=== PATIENT | female | born 1945 | race Caucasian/White ===

== ENCOUNTER 2016-08-20 03:11 | Inpatient (IN) | payer BC, OTHER ==
[~2016-08-20] VITALS: Ht 152.4 cm; Wt 90.8 kg
[2016-08-20] VITALS (10 sets, daily range): BP systolic 108–180; BP diastolic 64–77; PULSE 81–96; TEMP 36.8–37.1; O2SAT 85–97; Ht 152.4 cm; Wt 90.8 kg
[~2016-08-20 03:11] MED LIST: ALBUAER2; ASMTWH; ATOR-24 PO; GLC500; HYDC25; LISI-725; SALM50AE2
[2016-08-20] MEDS ORDERED: SODIUM CHLORIDE 0.9% 1000ML 1,000 ML IV STA (03:29)
[2016-08-20] MEDS ORDERED: SODIUM CHLORIDE 0.9% 1000ML 1,000 ML IV ONE (03:29)
[2016-08-20] MEDS ORDERED: ACETAMINOPHEN 325 MG TAB PO STA (03:42)
[2016-08-20 03:55] LABS: MEAN CELL VOLUME 83.5 fL (80-100); MEAN CORPUSCULAR HEMOGLOBIN 27.9 pg (25-34); MEAN CORPUSCULAR HGB CONC 33.4 g/dl (32-36); MEAN PLATELET VOLUME 10.3 fL (7.4-10.4); PLATELET COUNT 226 K/uL (130-400); RED BLOOD COUNT 4.19 M/uL (4.2-5.4); WHITE BLOOD COUNT 23.45 K/uL (4.8-10.8)
--- NOTE | 2016-08-20 03:56 | EMERGENCY ROOM VISIT NOTE ---
History Report prepared by Sylvia: Britt Foss Under the Supervision of: Dr. Collins Willis M.D. First contact with patient: 03:23 Chief Complaint: FLU LIKE SX Stated Complaint: FLU History of Present Illness The patient is a 71 year old female who presents to the Emergency Room with complaints of persistent flu like symptoms that began yesterday morning. She states that her symptoms worsened throughout the day. The patient associates nausea, a nonproductive cough, fever, headache, sore throat, and body aches with her symptoms today. She states that she recently visited her daughter, who was diagnosed with the flu. The patient states that she got a flu shot this year. She states that she last took Ibuprofen for her fever 1.5 hours ago. The patient denies taking any Tylenol recently. She states that she has had difficulty keeping up on her fluids today due to her sore throat. The patient notes a history of asthma. She denies any history of heart disease or being on any blood thinners. Per the patient's , the patient was confused and disoriented a few hours ago. He notes that the patient has a history of breast cancer 10 years ago, noting that she is now in remission. The patient denies any abdominal pain, back pain, urinary symptoms, or pain or swelling in her legs. Source of History: patient, spouse/significant other () Onset: yesterday morning Position: other (global ) Quality: other (flu like symptoms) Timing: worsening, other (persistent) Associated Symptoms: + cough, + fevers, + headache, + nausea, + sorethroat, No abdominal pain, No back pain, No urinary symptoms Note: Associated Symptoms: body aches Review of Systems See HPI for pertinent positives & negatives. A total of 10 systems reviewed and were otherwise negative. Past Medical & Surgical Medical Problems: (1) Asthma (2) Breast cancer (3) Cerebrovascular disease (4) Diabetes mellitus, type 2 (5) Dyslipidemia (6) Fever (7) History of breast cancer (8) Hypertension (9) Hypothyroidism Surgical Problems: (1) H/O breast surgery (2) Status post hysterectomy (3) Status post partial mastectomy (4) Status post tonsillectomy Old medical records were reviewed. Nurse's notes were reviewed and I agree with. Family History FHx: cancer Social History Smoking Status: Never Smoker Smokeless Tobacco Use: No Alcohol Use: none Marital Status: Housing Status: lives with significant other Occupation Status: unemployed Current/Historical Medications Scheduled Aspirin (Aspirin Ec), 81 MG PO DAILY Atorvastatin (Lipitor), 40 MG PO DAILY Budesonide/Formoterol Fumarate (Symbicort 80/4.5 Inhaler), 2 PUFFS INH BID Cyanocobalamin (Vitamin B-12), 1,000 MCG PO DAILY Hydrochlorothiazide (Hctz), 25 MG PO DAILY Ibuprofen (Ibuprofen), 400 MG PO QAM Levothyroxine Sodium (Levothyroxine Sodium), 50 MCG PO DAILY Metformin Hcl (Glucophage), 1,000 MG PO BID Montelukast Sodium (Singulair), 10 MG PO QPM Multiple Vitamins W/ Minerals (Preservision Areds), 1 CAP PO BID Sitagliptin Phosphate (Januvia), 100 MG PO DAILY Travoprost (Travatan Z), 1 DROPS OPB HS Scheduled PRN Albuterol Hfa (Ventolin Hfa), 2 PUFFS INH Q6H PRN for SOB/Wheezing Allergies Coded Allergies: Erythromycin (Verified Allergy, Intermediate, RASH, 08/20/16) ITCHING Lisinopril (Verified Allergy, Intermediate, EDEMA FACE/LIPS/TONGUE, ) Physical Exam Vital Signs Date Time Temp Pulse Resp B/P Pulse Ox O2 Delivery O2 Flow Rate FiO2 08/20/16 04:39 37.1 81 18 122/91 96 Nasal Cannula 2.0 08/20/16 04:00 88 20 144/89 95 Nasal Cannula 2.0 08/20/16 03:44 95 Nasal Cannula 2.0 08/20/16 03:43 90 Room Air 08/20/16 03:15 38.0 104 20 113/60 91 Room Air Physical Exam General: Well developed well nourished, non-ill appearing older female in no acute distress, breathing comfortably on room air. Normal speech HEENT: Normal cephalic atraumatic. Pupils are equal round and reactive to light. Sclera anicteric Extraocular movements are intact. Oropharynx is pink with moist mucous membranes. No swelling of the mouth lips or tongue. Neck: Supple with a midline trachea. No meningeal signs or stiffness, no JVD or bruits. No Stridor. Chest: Clear to auscultation bilaterally. No wheezes or rhonchi. No increased work of breathing. Heart: regular rate and rhythm. Abdomen: Soft nontender, nondistended without rebound guarding or rigidity. Extremities: No cyanosis clubbing or edema. No calf tenderness or assymetry Spine/Back. Non tender to palpation. No CVA tenderness Skin: Good turgor without rashes. Neurologic exam: Cranial nerves two through 12 are intact. Motor and sensation are intact and symmetrical throughout. Medical Decision & Procedures ER Provider Diagnostic Interpretation: Chest x-ray per my interpretation reveals questionable infiltrate in the right base. Laboratory Results Test 08/20/16 03:40 08/20/16 03:45 08/20/16 03:46 08/20/16 04:21 Influenza Type A Antigen Neg for Influ A (NEG) Influenza Type B Antigen Neg for Influ B (NEG) Immature Granulocyte % (Auto) 0.4 % White Blood Count 23.45 K/uL (4.8-10.8) Red Blood Count 4.19 M/uL (4.2-5.4) Hemoglobin 11.7 g/dL (12.0-16.0) Hematocrit 35.0 % (37-47) Mean Corpuscular Volume 83.5 fL (80-100) Mean Corpuscular Hemoglobin 27.9 pg (25-34) Mean Corpuscular Hemoglobin Concent 33.4 g/dl (32-36) Platelet Count 226 K/uL (130-400) Mean Platelet Volume 10.3 fL (7.4-10.4) Neutrophils (%) (Auto) 89.1 % Lymphocytes (%) (Auto) 3.5 % Monocytes (%) (Auto) 6.9 % Eosinophils (%) (Auto) 0.0 % Basophils (%) (Auto) 0.1 % Neutrophils # (Auto) 20.91 K/uL (1.4-6.5) Lymphocytes # (Auto) 0.82 K/uL (1.2-3.4) Monocytes # (Auto) 1.61 K/uL (0.11-0.59) Eosinophils # (Auto) 0.00 K/uL (0-0.5) Basophils # (Auto) 0.02 K/uL (0-0.2) Immature Granulocyte # (Auto) 0.09 K/uL (0.00-0.02) Red Blood Cell Morphology Unremarkable Prothrombin Time 11.2 SECONDS (9.0-12.0) Prothromb Time International Ratio 1.0 (0.9-1.1) Activated Partial Thromboplast Time 28.3 SECONDS (21.0-31.0) Partial Thromboplastin Ratio 1.1 Total Bilirubin 0.8 mg/dl (0.2-1) Direct Bilirubin 0.2 mg/dl (0-0.2) Aspartate Amino Transf (AST/SGOT) 13 U/L (15-37) Alanine Aminotransferase (ALT/SGPT) 20 U/L (12-78) Alkaline Phosphatase 92 U/L (45-117) Total Protein 7.0 gm/dl (6.4-8.2) Albumin 3.3 gm/dl (3.4-5.0) Lipase 70 U/L (73-393) Hepatitis C Antibody Screen NEG (NEG) Bedside Lactic Acid Venous 0.80 mmol/L (0.90-1.70) Laboratory studies as stated above per my review. Medications Administered Medications (Trade) Dose Ordered Sig/Tiara Route Start Time Stop Time Status Last Admin Dose Admin Sodium Chloride 1,000 ml @ 999 mls/hr Q1H1M STAT IV 08/20/16 03:29 08/20/16 04:29 DC 08/20/16 03:48 999 MLS/HR Sodium Chloride (Nss 1000ml) 1,000 ml @ 150 mls/hr Q6H40M ONCE IV 08/20/16 03:29 08/20/16 06:38 DC 08/20/16 04:42 150 MLS/HR Acetaminophen (Tylenol Tab) 650 mg NOW STAT PO 08/20/16 03:42 08/20/16 03:44 DC 08/20/16 03:46 650 MG Piperacillin Sod/ Tazobactam Sod (Zosyn Iv) 4.5 gm NOW STAT IV 08/20/16 04:05 08/20/16 04:06 DC 08/20/16 04:12 4.5 GM Levofloxacin (Levaquin / D5W) 750 mg NOW STAT IV 08/20/16 04:10 08/20/16 04:11 DC 08/20/16 04:53 750 MG ECG Indication: other (flu like illness) Rate (beats per minute): 93 Rhythm: normal sinus Findings: no acute ischemic change, other (low voltage, poor R wave progression ) ED Course 0324: Past medical records reviewed. The patient was evaluated in room B4B, and a complete history and physical examination were performed. 0329: Ordered Sodium Chloride 1000 ml @ 150 mls/hr IV, Sodium Chloride 1000 ml @ 999 mls/hr IV. 0342: Ordered Tylenol Tab 650 m PO. 0405: Ordered Zosyn IV 4.5 gm IV. 0406: I reevaluated the patient and she is resting comfortably. I discussed the exam findings with her and I discussed the treatment plan. She verbalized complete understanding and agreement. She will be evaluated for further treatment. 0410: Ordered Levofloxacin 750 mg IV. 0455: I discussed the patient's case with Love Wise. He is going to evaluate the patient for further treatment. Medical Decision Differentials include, but are not limited to; influenza, pneumonia, sepsis, UTI , electrolyte or metabolic abnormality. This patient comes in as described above. She's had flulike symptoms. Her daughter was also sick with the flu. She was placed on a cardiac cath tech in room B4. She also has a cough, bodyaches, and sore throat. IV access was established. EKG was obtained which does not show any ischemic changes. chest x- ray and urinalysis and culture also ordered as well as lactic acid. She was reassessed frequently. Lactic acid is not elevated have her white count is significantly elevated. Chest x-ray shows questionable infiltrate in the base. Influenza was negative. She's no significant electrolyte or metabolic abnormalities. She was hydrated with IV normal saline. She was given broad- spectrum IV antibiotics for presumed respiratory infection. Given her high white count, I do think she needs to be admitted for the possibility of sepsis here I have consulted Dr. Silva. He saw an ER will admit her for these measures. Consults Time Called: [phone] Consulting Physician: Love Wise Returned Call: [phone] I discussed the patient's case with Love Wise. He is going to evaluate the patient for further treatment. Impression Primary Impression: Pneumonia Additional Impression: Sepsis Scribe Attestation The scribe's documentation has been prepared under my direction and personally reviewed by me in its entirety. I confirm that the note above accurately reflects all work, treatment, procedures, and medical decision making performed by me. Departure Information Dispostion Being Evaluated By Hospitalist Referrals No Doctor, Assigned (PCP) Problem Qualifiers
[2016-08-20] MEDS ORDERED: PIPERACILLIN/TAZOBACTAM 4.5 GM/100ML D5W IV STA (04:05)
[2016-08-20] MEDS ORDERED: LEVAQUIN 750MG / 150ML D5W IV STA (04:10)
[2016-08-20 04:21] LABS: BASO % 0.1 %; BASO ABS # 0.02 K/uL (0-0.2); BUN/CREATININE RATIO 22.5 (10-20); CALCIUM 8.4 mg/dl (8.5-10.1); COMPLETE YES; CREATININE 0.89 mg/dl (0.60-1.20); IG% 0.4 %; LYMPH % 3.5 %; LYMPH ABS # 0.82 K/uL (1.2-3.4); MONO % 6.9 %; NEUT % 89.1 %; POTASSIUM 3.1 mmol/L (3.5-5.1)
[2016-08-20] MEDS ORDERED: VNTHFA/IN INH (04:28)
[2016-08-20] MEDS ORDERED: METF-384 PO (04:29)
[2016-08-20] MEDS ORDERED: MULTCAP33 PO (04:30)
[2016-08-20] MEDS ORDERED: ASPI81TA28 PO (04:31)
[2016-08-20] MEDS ORDERED: SYMIN/8045 INH (04:32)
[2016-08-20] MEDS ORDERED: IBUP1CAP9 PO (04:33)
[2016-08-20] MEDS ORDERED: TRAV0.00 OPB (04:34)
[2016-08-20] MEDS ORDERED: CYAN10005 PO (04:35)
[2016-08-20] MEDS ORDERED: MONT1TAB3 PO (04:35)
[2016-08-20] MEDS ORDERED: SITA100T3 PO (04:36)
[2016-08-20] MEDS ORDERED: LEVO50TA6 PO (04:37)
[2016-08-20] MEDS ORDERED: HYDR25TA4 PO (04:38)
--- NOTE | 2016-08-20 05:33 | History and Physical ---
History & Physical Date & Time of Service: Aug 20, 2016 at 05:33 . Chief Complaint: fever, cough, confusion . Primary Care Physician: Brea Mena D.O. History of Present Illness Source: patient, family, clinic records, hospital records 71 [address]O female followed by Dr. Brea Mena for Family Medicine. History of hypertension, asthma, DM, and other problems noted below. Developed pharyngitis about 24 hours prior to admission. Subsequently developed fever, chills, sweats, malaise, and a minimally productive cough. Tonight, patient's noted that she was confused. Also had an episode of urinary incontinence which is unusual for her. No associated dysuria or hematuria. Visited daughter about a week ago who was recovering from a bout of influenza. . Past Medical/Surgical History Chronic Medical Problems: (1) Asthma Status: Chronic (3) Cerebrovascular disease Permanent Comment: history TIA Status: Chronic (5) Diabetes mellitus, type 2 Status: Chronic (6) Dyslipidemia Status: Chronic (7) History of breast cancer Permanent Comment: right breast, s/p partial mastectomy, chemo, XRT Status: Chronic (8) Hypertension Status: Chronic (9) Hypothyroidism Status: Chronic Surgical Problems: (2) Status post hysterectomy Status: Chronic (3) Status post partial mastectomy Permanent Comment: right Status: Chronic (4) Status post tonsillectomy Status: Chronic . Family History FATHER Heart disease Hypertension MOTHER Diabetes mellitus Hypertension Aplastic anemia SISTER Lung cancer SISTER Malignant neoplasm of endometrium AUNT Breast cancer Colon cancer Relation not specified for: Asthma Social History Smoking Status: Never Smoker Smokeless Tobacco Use: No Alcohol Use: none Marital Status: Occupational Status: unemployed Immunizations History of Influenza Vaccine: Yes Multi-Drug Resistant Organisms History of MDRO: No Allergies Coded Allergies: Lisinopril (Verified Allergy, Intermediate, EDEMA FACE/LIPS/TONGUE, ) Erythromycin (Verified Allergy, Unknown, RASH, 08/20/16) ITCHING Home Medications Scheduled Aspirin (Aspirin Ec), 81 MG PO DAILY Atorvastatin (Lipitor), 40 MG PO DAILY Budesonide/Formoterol Fumarate (Symbicort 80/4.5 Inhaler), 2 PUFFS INH BID Cyanocobalamin (Vitamin B-12), 1,000 MCG PO DAILY Hydrochlorothiazide (Hctz), 25 MG PO DAILY Ibuprofen (Ibuprofen), 400 MG PO QAM Levothyroxine Sodium (Levothyroxine Sodium), 50 MCG PO DAILY Metformin Hcl (Glucophage), 1,000 MG PO BID Montelukast Sodium (Singulair), 10 MG PO QPM Multiple Vitamins W/ Minerals (Preservision Areds), 1 CAP PO BID Sitagliptin Phosphate (Januvia), 100 MG PO DAILY Travoprost (Travatan Z), 1 DROPS OPB HS Scheduled PRN Albuterol Hfa (Ventolin Hfa), 2 PUFFS INH Q6H PRN for SOB/Wheezing Review of Systems Constitutional: + chills, + fever, + sweats Eyes: No diplopia, No worsening of vision ENT: + hearing loss, + nasal symptoms, + sore throat Respiratory: + cough, + shortness of breath, + wheezing Cardiovascular: + edema (chronic mild edema right ankle), No chest pain, No palpitations Abdomen: No GI bleeding, No constipation, No diarrhea, No nausea, No vomiting Musculoskeletal: + muscle pain Genitourinary - Female: + urinary incontinence, No dysuria, No hematuria Neurologic: + problem reported (confusion), + weakness (generalized) Endocrine: No excessive thirst, No excessive urination Hematologic / Lymphatic: No abnormal bleeding/bruising, No swollen lymph nodes Physical Exam Vital Signs Date Time Temp Pulse Resp B/P Pulse Ox O2 Delivery O2 Flow Rate FiO2 08/20/16 04:39 37.1 81 18 122/91 96 Nasal Cannula 2.0 08/20/16 04:00 88 20 144/89 95 Nasal Cannula 2.0 08/20/16 03:44 95 Nasal Cannula 2.0 08/20/16 03:43 90 Room Air 08/20/16 03:15 38.0 104 20 113/60 91 Room Air General Appearance: WD/WN, no apparent distress Head: normocephalic, atraumatic Eyes: normal inspection, PERRL, EOMI, sclerae normal ENT: normal ENT inspection, hearing grossly normal, pharynx normal, + pertinent finding (dentition fair) Neck: supple, no adenopathy, thyroid normal, no JVD, trachea midline Respiratory/Chest: no accessory muscle use, + crackles (right base), + wheezing (diffuse mild wheezing) Cardiovascular: regular rate, rhythm, no edema, no gallop, no JVD, no murmur, normal peripheral pulses, + tachycardia Abdomen/GI: normal bowel sounds, non tender, soft, no organomegaly, no pulsatile mass Extremities/Musculoskelatal: normal inspection, no calf tenderness, normal capillary refill, no pedal edema 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 (PERRL, EOMI, no facial palsy, no dysarthria), no motor/sensory deficits (upper and lower extremity strength grossly intact), alert, oriented x 3 Skin: normal color, warm/dry, no rash Lymphatic: no adenopathy Diagnostics Laboratory Results Results Past 24 Hours Test 08/20/16 03:40 08/20/16 03:45 08/20/16 04:21 Range/Units Influenza Type A Antigen Neg for Influ A NEG Influenza Type B Antigen Neg for Influ B NEG White Blood Count 23.45 4.8-10.8 K/uL Red Blood Count 4.19 4.2-5.4 M/uL Hemoglobin 11.7 12.0-16.0 g/dL Hematocrit 35.0 37-47 % Mean Corpuscular Volume 83.5 80-100 fL Mean Corpuscular Hemoglobin 27.9 25-34 pg Mean Corpuscular Hemoglobin Concent 33.4 32-36 g/dl Platelet Count 226 130-400 K/uL Mean Platelet Volume 10.3 7.4-10.4 fL Neutrophils (%) (Auto) 89.1 % Lymphocytes (%) (Auto) 3.5 % Monocytes (%) (Auto) 6.9 % Eosinophils (%) (Auto) 0.0 % Basophils (%) (Auto) 0.1 % Neutrophils # (Auto) 20.91 1.4-6.5 K/uL Lymphocytes # (Auto) 0.82 1.2-3.4 K/uL Monocytes # (Auto) 1.61 0.11-0.59 K/uL Eosinophils # (Auto) 0.00 0-0.5 K/uL Basophils # (Auto) 0.02 0-0.2 K/uL RDW Standard Deviation 45.9 36.4-46.3 fL RDW Coefficient of Variation 15.0 11.5-14.5 % Immature Granulocyte % (Auto) 0.4 % Immature Granulocyte # (Auto) 0.09 0.00-0.02 K/uL Red Blood Cell Morphology Unremarkable Sodium Level 139 136-145 mmol/L Potassium Level 3.1 3.5-5.1 mmol/L Chloride Level 100 98-107 mmol/L Carbon Dioxide Level 29 21-32 mmol/L Anion Gap 10.0 3-11 mmol/L Blood Urea Nitrogen 20 7-18 mg/dl Creatinine 0.89 0.60-1.20 mg/dl Est Creatinine Clear Calc Drug Dose 74.9 ml/min Estimated GFR () 75.6 Estimated GFR (Non- 65.2 BUN/Creatinine Ratio 22.5 10-20 Random Glucose 152 70-99 mg/dl Calcium Level 8.4 8.5-10.1 mg/dl Total Bilirubin 0.8 0.2-1 mg/dl Direct Bilirubin 0.2 0-0.2 mg/dl Aspartate Amino Transf (AST/SGOT) 13 15-37 U/L Alanine Aminotransferase (ALT/SGPT) 20 12-78 U/L Alkaline Phosphatase 92 45-117 U/L Total Protein 7.0 6.4-8.2 gm/dl Albumin 3.3 3.4-5.0 gm/dl Lipase 70 73-393 U/L Bedside Lactic Acid Venous 0.80 0.90-1.70 mmol/L Microbiology Results 08/20/16 Blood Culture, Received Pending 08/20/16 Blood Culture, Received Pending Diagnostic Radiology Chest x-ray reviewed by undersigned, formal report pending: possible infiltrate right base . Impression Assessment and Plan FEVER / SEPSIS Meets criteria for sepsis per 2002 guidelines and current CMS policy. Hemodynamically stable. Serum lactate 0.8. Most likely source pneumonia. Nasopharyngeal swab neg for influenza A/B per antigen assay- check PCR for higher sensitivity. Blood cultures obtained in ED. Received IV levofloxacin and piperacillin / tazobactam which will be continued. ALTERED MENTAL STATUS Confused at home. Better in ED. Probable encephalopathy secondary to sepsis. Follow. HYPOKALEMIA Serum potassium 3.1. Hypokalemia probably due to HCTZ. PO repletion. Follow. HYPERTENSION Hold HCTZ due to febrile illness and hypokalemia. Follow and titrate Rx. ASTHMA Mild wheezing. Not hypoxic. Continue Symbicort. Nebs PRN. Add steroids if bronchospasm worsens. DM TYPE 2 Usually well-controlled on oral agents. Random glucose in ED 152. Check Hgb A1C. Hold oral agents during the hospital stay. NovoLog coverage +/- Lantus as needed. VTE PROPHYLAXIS Moderate risk for VTE. SQ enoxaparin. Ambulate. RESUSCITATION STATUS Discussed with patient. She does not have a living will. She would like resuscitation attempted in the event of a cardiopulmonary arrest if there is a reasonable chance of a meaningful recovery, but does not want prolonged extraordinary measures if prognosis is poor. Therefore, code status = "Level 1" (full resuscitation). DISPOSITION Admit to Med-Surg Unit. Expected discharge to home. Family Medicine follow-up with Dr. Brea Mena. . VTE Prophylaxis Risk Level: Moderate Given or contraindicated: Enoxaparin (Lovenox)SQ
[2016-08-20 05:51] LABS: PARTIAL THROMBOPLASTIN RATIO 1.1; PROTHROMBIN TIME (PATIENT) 11.2 SECONDS (9.0-12.0)
[2016-08-20 06:31] LABS: URINE APPEARANCE CLEAR (CLEAR); URINE BILIRUBIN NEG (NEG); URINE COLOR YELLOW; URINE EPITHELIAL CELL AUTO 20-30 /lpf (0-5); URINE NITRITE NEG (NEG); URINE SPECIFIC GRAVITY 1.018 (1.000-1.030); UROBILINOGEN NEG (NEG)
[2016-08-20 06:34] LABS: MANUAL MICROSCOPIC REQUIRED? NO; REVIEW REQ? NO
--- NOTE | 2016-08-20 06:48 | DIAGNOSTIC IMAGING REPORT ---
CHEST ONE VIEW PORTABLE CLINICAL HISTORY: CHEST PAIN dyspnea COMPARISON STUDY: No previous studies for comparison. FINDINGS: Minimal infiltrative change right base. Lungs otherwise appear clear. Diaphragms smooth. Costophrenic and sharp. IMPRESSION: Minimal infiltrative change right base. Electronically signed by: Edgar Red M.D. 08/20/2016 6:47 AM Dictated Date/Time: 08/20/2016 6:46 AM
[2016-08-20] MEDS ORDERED: LEVALBUTEROL 0.63MG/3 ML NEB INH PRN (07:15)
[2016-08-20] MEDS ORDERED: PIPERACILL/TAZOBAC CONSULT ACTIVE PRN (07:30)
[2016-08-20] MEDS: LACTATED RINGER'S 1000ML 1,000 ML IV SCH ×2 (07:35→20:50)
[2016-08-20] MEDS ORDERED: POTASSIUM CHLORIDE 20 MEQ TABCR PO SCH (08:00)
[2016-08-20] MEDS: CEROVITE ADV FORMULA TAB PO SCH ×2 (08:15→20:52)
[2016-08-20] MEDS: BUDESONIDE/FORMOTEROL FUMARATE 80/4.5 60 PUFFS/INHALER INH SCH ×2 (08:15→20:51)
[2016-08-20] MEDS: LEVOTHYROXINE 50 MCG TAB PO SCH (08:16)
[2016-08-20] MEDS: ASPIRIN 81 MG ECTAB PO SCH (08:16)
[2016-08-20] MEDS: ATORVASTATIN 40 MG TAB PO SCH (08:16)
[2016-08-20] MEDS: CYANOCOBALAMIN 500 MCG TAB (VIT B-12) PO SCH (08:16)
[2016-08-20] MEDS: ENOXAPARIN 40 MG/0.4 ML SYR SQ SCH (08:17)
[2016-08-20] MEDS ORDERED: LEVOFLOXACIN CONSULT ACTIVE PRN (08:30)
[2016-08-20] MEDS ORDERED: PIPERACILL/TAZOBAC IV 4.5 GM in DEXTROSE 5% 100ML 100 ML IV SCH (10:00)
[2016-08-20] MEDS ORDERED: GUAIFENESIN SUGAR FREE 100 MG/5 ML UDC PO PRN (10:30)
[2016-08-20 11:12] LABS: INFLUENZA A PCR Neg for Influ A (NEG); INFLUENZA B PCR Neg for Influ B (NEG)
[2016-08-20] MEDS: LEVALBUTEROL 1.25MG/0.5ML NEB INH SCH ×3 (11:12→19:56)
[2016-08-20] MEDS: IPRATROPIUM BROMIDE NEB SOLN 0.02% 2.5 ML VIAL INH SCH ×3 (11:12→19:56)
[2016-08-20] MEDS: INSULIN ASPART 100 UNITS/ML 3 ML PEN SC SCH ×3 (14:09→20:52)
[2016-08-20 14:46] LABS: ESTIMATED AVERAGE GLUCOSE 140 mg/dl; HA1C FLAG Normal (Normal)
[2016-08-20] MEDS ORDERED: POTASSIUM CHLORIDE 10 MEQ TABCR PO ONE (20:00)
[2016-08-20] MEDS: MONTELUKAST SOD 10 MG TAB PO SCH (20:52)
[2016-08-20] MEDS: TRAVOPROST Z 0.004% OPH SOLN 2.5 ML BTL OPB SCH (20:54)
--- NOTE | 2016-08-20 22:59 | Progress Note ---
Medicine Progress Note Date & Time of Visit: Aug 20, 2016 at 1200. Subjective Reports cough which is better, no fevers or chills, no UTI symptoms, no diarrhea or other symptoms at this time Objective Last 8 Hrs Date Time Temp Pulse Resp B/P Pulse Ox O2 Delivery O2 Flow Rate FiO2 08/20/16 20:05 37.1 91 16 126/77 90 08/20/16 20:00 Room Air 08/20/16 19:56 81 16 92 Room Air 08/20/16 16:00 Room Air 08/20/16 15:38 37.0 92 18 119/75 92 08/20/16 15:30 92 16 92 Room Air Physical Exam: GEN: WNWD, in no acute distress, alert and appropriate, no conversational dyspnea HEENT: NC/AT, pupils are equal, normal sclerae CARDIO: reg rate, S1/2 heard without m/g/r LUNGS: CTA bilaterally, no crackles, rales or wheezes, good diaphragmatic excursion ABD: soft, non-tender, non-distended, no rebound or guarding, +BS EXTREMITY: RP and DP palpable 2+ bilat, no LE swelling or edema, extremities are warm and well-perfused NEURO: CN 2-12 grossly intact, sensation intact throughout MUSC: 5/5 strength throughout, no focal deficits SKIN: warm and dry Laboratory Results: 08/20/16 03:45 Red Blood Count 4.19, Mean Corpuscular Volume 83.5, Mean Corpuscular Hemoglobin 27.9, Mean Corpuscular Hemoglobin Concent 33.4, Mean Platelet Volume 10.3, Neutrophils (%) (Auto) 89.1, Lymphocytes (%) (Auto) 3.5, Monocytes (%) (Auto) 6.9, Eosinophils (%) (Auto) 0.0, Basophils (%) (Auto) 0.1, Neutrophils # (Auto) 20.91, Lymphocytes # (Auto) 0.82, Monocytes # (Auto) 1.61, Eosinophils # (Auto) 0.00, Basophils # (Auto) 0.02 08/20/16 03:45 08/20/16 14:10 Test 08/20/16 03:40 08/20/16 03:45 08/20/16 03:46 08/20/16 04:21 Influenza Type A Antigen Neg for Influ A (NEG) Influenza Type B Antigen Neg for Influ B (NEG) White Blood Count 23.45 K/uL (4.8-10.8) Red Blood Count 4.19 M/uL (4.2-5.4) Hemoglobin 11.7 g/dL (12.0-16.0) Hematocrit 35.0 % (37-47) Mean Corpuscular Volume 83.5 fL (80-100) Mean Corpuscular Hemoglobin 27.9 pg (25-34) Mean Corpuscular Hemoglobin Concent 33.4 g/dl (32-36) Platelet Count 226 K/uL (130-400) Mean Platelet Volume 10.3 fL (7.4-10.4) Neutrophils (%) (Auto) 89.1 % Lymphocytes (%) (Auto) 3.5 % Monocytes (%) (Auto) 6.9 % Eosinophils (%) (Auto) 0.0 % Basophils (%) (Auto) 0.1 % Neutrophils # (Auto) 20.91 K/uL (1.4-6.5) Lymphocytes # (Auto) 0.82 K/uL (1.2-3.4) Monocytes # (Auto) 1.61 K/uL (0.11-0.59) Eosinophils # (Auto) 0.00 K/uL (0-0.5) Basophils # (Auto) 0.02 K/uL (0-0.2) RDW Standard Deviation 45.9 fL (36.4-46.3) RDW Coefficient of Variation 15.0 % (11.5-14.5) Immature Granulocyte % (Auto) 0.4 % Immature Granulocyte # (Auto) 0.09 K/uL (0.00-0.02) Red Blood Cell Morphology Unremarkable Prothrombin Time 11.2 SECONDS (9.0-12.0) Prothromb Time International Ratio 1.0 (0.9-1.1) Activated Partial Thromboplast Time 28.3 SECONDS (21.0-31.0) Partial Thromboplastin Ratio 1.1 Anion Gap 10.0 mmol/L (3-11) Est Creatinine Clear Calc Drug Dose 74.9 ml/min Estimated GFR () 75.6 Estimated GFR (Non- 65.2 BUN/Creatinine Ratio 22.5 (10-20) Calcium Level 8.4 mg/dl (8.5-10.1) Total Bilirubin 0.8 mg/dl (0.2-1) Direct Bilirubin 0.2 mg/dl (0-0.2) Aspartate Amino Transf (AST/SGOT) 13 U/L (15-37) Alanine Aminotransferase (ALT/SGPT) 20 U/L (12-78) Alkaline Phosphatase 92 U/L (45-117) Total Protein 7.0 gm/dl (6.4-8.2) Albumin 3.3 gm/dl (3.4-5.0) Lipase 70 U/L (73-393) Hepatitis C Antibody Screen NEG (NEG) Bedside Lactic Acid Venous 0.80 mmol/L (0.90-1.70) Test 08/20/16 06:00 08/20/16 09:35 08/20/16 14:10 08/20/16 20:31 Urine Color YELLOW Urine Appearance CLEAR (CLEAR) Urine pH 6.0 (4.5-7.5) Urine Specific [place] 1.018 (1.000-1.030) Urine Protein NEG (NEG) Urine Glucose (UA) NEG (NEG) Urine Ketones TRACE (NEG) Urine Occult Blood NEG (NEG) Urine Nitrite NEG (NEG) Urine Bilirubin NEG (NEG) Urine Urobilinogen NEG (NEG) Urine Leukocyte Esterase SMALL (NEG) Urine WBC (Auto) 1-5 /hpf (0-5) Urine RBC (Auto) 0-4 /hpf (0-4) Urine Hyaline Casts (Auto) 1-5 /lpf (0-5) Urine Epithelial Cells (Auto) 20-30 /lpf (0-5) Urine Bacteria (Auto) NEG (NEG) Influenza Type A (RT-PCR) Neg for Influ A (NEG) Influenza Type B (RT-PCR) Neg for Influ B (NEG) Estimated Average Glucose 140 mg/dl Hemoglobin A1c 6.5 % (4.5-5.6) Bedside Glucose 116 mg/dl (70-90) Date/Time Source Procedure Growth Status 08/20/16 03:50 Blood Blood Culture Pending Received 08/20/16 06:00 Urine , Clean Catch Urine Culture Pending Received Last 24 Hours Test 08/20/16 03:40 08/20/16 03:45 08/20/16 03:46 08/20/16 04:21 Influenza Type A Antigen Neg for Influ A Influenza Type B Antigen Neg for Influ B White Blood Count 23.45 K/uL Red Blood Count 4.19 M/uL Hemoglobin 11.7 g/dL Hematocrit 35.0 % Mean Corpuscular Volume 83.5 fL Mean Corpuscular Hemoglobin 27.9 pg Mean Corpuscular Hemoglobin Concent 33.4 g/dl Platelet Count 226 K/uL Mean Platelet Volume 10.3 fL Neutrophils (%) (Auto) 89.1 % Lymphocytes (%) (Auto) 3.5 % Monocytes (%) (Auto) 6.9 % Eosinophils (%) (Auto) 0.0 % Basophils (%) (Auto) 0.1 % Neutrophils # (Auto) 20.91 K/uL Lymphocytes # (Auto) 0.82 K/uL Monocytes # (Auto) 1.61 K/uL Eosinophils # (Auto) 0.00 K/uL Basophils # (Auto) 0.02 K/uL RDW Standard Deviation 45.9 fL RDW Coefficient of Variation 15.0 % Immature Granulocyte % (Auto) 0.4 % Immature Granulocyte # (Auto) 0.09 K/uL Red Blood Cell Morphology Unremarkable Prothrombin Time 11.2 SECONDS Prothromb Time International Ratio 1.0 Activated Partial Thromboplast Time 28.3 SECONDS Partial Thromboplastin Ratio 1.1 Sodium Level 139 mmol/L Potassium Level 3.1 mmol/L Chloride Level 100 mmol/L Carbon Dioxide Level 29 mmol/L Anion Gap 10.0 mmol/L Blood Urea Nitrogen 20 mg/dl Creatinine 0.89 mg/dl Est Creatinine Clear Calc Drug Dose 74.9 ml/min Estimated GFR () 75.6 Estimated GFR (Non- 65.2 BUN/Creatinine Ratio 22.5 Random Glucose 152 mg/dl Calcium Level 8.4 mg/dl Total Bilirubin 0.8 mg/dl Direct Bilirubin 0.2 mg/dl Aspartate Amino Transf (AST/SGOT) 13 U/L Alanine Aminotransferase (ALT/SGPT) 20 U/L Alkaline Phosphatase 92 U/L Total Protein 7.0 gm/dl Albumin 3.3 gm/dl Lipase 70 U/L Hepatitis C Antibody Screen NEG Bedside Lactic Acid Venous 0.80 mmol/L Test 08/20/16 06:00 08/20/16 07:31 08/20/16 09:35 08/20/16 11:16 Urine Color YELLOW Urine Appearance CLEAR Urine pH 6.0 Urine Specific [place] 1.018 Urine Protein NEG Urine Glucose (UA) NEG Urine Ketones TRACE Urine Occult Blood NEG Urine Nitrite NEG Urine Bilirubin NEG Urine Urobilinogen NEG Urine Leukocyte Esterase SMALL Urine WBC (Auto) 1-5 /hpf Urine RBC (Auto) 0-4 /hpf Urine Hyaline Casts (Auto) 1-5 /lpf Urine Epithelial Cells (Auto) 20-30 /lpf Urine Bacteria (Auto) NEG Bedside Glucose 133 mg/dl 142 mg/dl Influenza Type A (RT-PCR) Neg for Influ A Influenza Type B (RT-PCR) Neg for Influ B Test 08/20/16 14:10 08/20/16 17:14 08/20/16 20:31 Potassium Level 3.2 mmol/L Estimated Average Glucose 140 mg/dl Hemoglobin A1c 6.5 % Bedside Glucose 121 mg/dl 116 mg/dl Date/Time Source Procedure Growth Status 08/20/16 03:50 Blood Blood Culture Pending Received 08/20/16 03:45 Blood Blood Culture Pending Received 08/20/16 06:00 Urine , Clean Catch Urine Culture Pending Received Diagnostic Imaging: CHEST ONE VIEW PORTABLE (08/20) CLINICAL HISTORY: CHEST PAIN dyspnea COMPARISON STUDY: No previous studies for comparison. FINDINGS: Minimal infiltrative change right base. Lungs otherwise appear clear. Diaphragms smooth. Costophrenic and sharp. IMPRESSION: Minimal infiltrative change right base. Assessment & Plan 71 yoF who presented with sepsis and fever/confusion admitted and found to have pneumonia 1. CAP--pt is doing much better this morning. On oxygen for comfort but doesn' t feel that she needs it. Ambulated to rest room without much difficulty. Will cont Levaquin IV for one more day, then switch to PO. Stopped Zosyn. Flu PCR is negative. 2. Metabolic encephalopathy-reoslved 3. Hypokalemia-replace 4. HTN-hold HCTZ 5. Asthma-no wheezing on exam, cont Symbicort and nebs PRN 6. DMII-glucose at goal range; cont ISS/Lantus DVT proph: Lovenox Full Code DISPOSITION Admit to Med-Surg Unit. Expected discharge to home. Family Medicine follow-up with Dr. Brea Mena. . Holly Wheatley DO Hospitalist Current Inpatient Medications: Current Inpatient Medications Medications (Trade) Dose Ordered Sig/Tiara Route Start Time Stop Time Status Last Admin Dose Admin Enoxaparin Sodium (Lovenox Inj) 40 mg Q24H SQ 08/20/16 09:00 09/19/16 08:59 08/20/16 08:17 40 MG Acetaminophen 650 mg 650 mg Q4H PRN PO 08/20/16 05:45 09/19/16 05:44 Lactated Ringer's (Lr 1000ml) 1,000 ml @ 100 mls/hr Q10H IV 08/20/16 06:45 09/19/16 06:44 08/20/16 20:50 100 MLS/HR Aspirin (Ecotrin Tab) 81 mg DAILY PO 08/20/16 09:00 09/19/16 08:59 08/20/16 08:16 81 MG Atorvastatin Calcium (Lipitor Tab) 40 mg DAILY PO 08/20/16 09:00 09/19/16 08:59 08/20/16 08:16 40 MG Budesonide/ Formoterol Fumarate (Symbicort 80/ 4.5 Inh) 2 puffs BID INH 08/20/16 09:00 09/19/16 08:59 08/20/16 20:51 2 PUFFS Cyanocobalamin (Vitamin B-12 Tab) 1,000 mcg DAILY PO 08/20/16 09:00 09/19/16 08:59 08/20/16 08:16 1,000 MCG Levothyroxine Sodium (Synthroid Tab) 50 mcg DAILYBB PO 08/20/16 08:00 09/19/16 07:59 08/20/16 08:16 50 MCG Montelukast Sodium (Singulair Tab) 10 mg QPM PO 08/20/16 21:00 09/19/16 20:59 08/20/16 20:52 10 MG Travoprost (Travatan Z) 1 drops HS OPB 08/20/16 21:00 09/19/16 20:59 08/20/16 20:54 1 DROPS Multivitamins/ Minerals (Multivitamin W/ Minerals Tab) 1 tab BID PO 08/20/16 09:00 09/19/16 08:59 08/20/16 20:52 1 TAB Ipratropium [place] (Atrovent 0.02% 0.5MG/2.5ML Neb) 0.5 mg QIDR INH 08/20/16 08:00 09/19/16 07:59 08/20/16 19:56 0.5 MG Levalbuterol (Xopenex 1.25MG/ 0.5ML Neb) 1.25 mg QIDR INH 08/20/16 08:00 09/19/16 07:59 08/20/16 19:56 1.25 MG Levalbuterol 0.63 mg 0.63 mg Q2H PRN INH 08/20/16 07:15 09/19/16 07:14 Levofloxacin/Prmx (Levaquin / D5W/ Premixed D5W) 150 ml @ 100 mls/hr DAILY@0600 IV 08/21/16 06:00 08/27/16 05:59 Levofloxacin (Consult) 1 ea UD PRN N/A 08/20/16 08:30 09/19/16 08:29 Guaifenesin (Robitussin Sugar Free Syrup) 100 mg Q6H PRN PO 08/20/16 10:30 09/19/16 10:29 Insulin Aspart (novoLOG ASPART) SLIDING SCALE G... ACHS SC 08/20/16 11:00 09/19/16 10:59 08/20/16 14:09 2 UNITS
[2016-08-21] VITALS (8 sets, daily range): BP systolic 116–124; BP diastolic 65–79; PULSE 71–99; TEMP 36.6–37.4; O2SAT 85–98
[2016-08-21] MEDS: LACTATED RINGER'S 1000ML 1,000 ML IV SCH (03:34)
[2016-08-21] MEDS: ACETAMINOPHEN 325 MG TAB PO PRN ×2 (05:44→23:45)
[2016-08-21] MEDS: LEVOTHYROXINE 50 MCG TAB PO SCH (05:45)
[2016-08-21] MEDS ORDERED: LEVOFLOXACIN / D5W 750 MG in PREMIXED IN D5W 150 ML IV SCH (06:00)
[2016-08-21 06:35] LABS: HEMATOCRIT 37.2 % (37-47); MEAN CELL VOLUME 85.5 fL (80-100); MEAN CORPUSCULAR HGB CONC 32.8 g/dl (32-36); MEAN PLATELET VOLUME 11.4 fL (7.4-10.4); PLATELET COUNT 222 K/uL (130-400); RED BLOOD COUNT 4.35 M/uL (4.2-5.4); WHITE BLOOD COUNT 18.11 K/uL (4.8-10.8)
[2016-08-21 07:01] LABS: BUN/CREATININE RATIO 19.8 (10-20); CALCIUM 9.1 mg/dl (8.5-10.1); CREATININE 0.86 mg/dl (0.60-1.20); MAGNESIUM 2.1 mg/dl (1.8-2.4); POTASSIUM 3.5 mmol/L (3.5-5.1)
[2016-08-21] MEDS: IPRATROPIUM BROMIDE NEB SOLN 0.02% 2.5 ML VIAL INH SCH ×4 (07:03→20:15)
[2016-08-21] MEDS: LEVALBUTEROL 1.25MG/0.5ML NEB INH SCH ×4 (07:03→20:15)
[2016-08-21] MEDS: ASPIRIN 81 MG ECTAB PO SCH (07:54)
[2016-08-21] MEDS: CEROVITE ADV FORMULA TAB PO SCH ×2 (07:54→21:03)
[2016-08-21] MEDS: BUDESONIDE/FORMOTEROL FUMARATE 80/4.5 60 PUFFS/INHALER INH SCH ×2 (07:54→21:02)
[2016-08-21] MEDS: CYANOCOBALAMIN 500 MCG TAB (VIT B-12) PO SCH (07:55)
[2016-08-21] MEDS: ATORVASTATIN 40 MG TAB PO SCH (07:55)
[2016-08-21] MEDS: INSULIN ASPART 100 UNITS/ML 3 ML PEN SC SCH ×4 (08:03→21:07)
[2016-08-21] MEDS: ENOXAPARIN 40 MG/0.4 ML SYR SQ SCH (08:55)
--- NOTE | 2016-08-21 17:56 | Progress Note ---
Medicine Progress Note Date & Time of Visit: Aug 21, 2016 at 10:06. Subjective doing well today -tolerating PO -off oxygen -afebrile overnight -cough improved. Objective Last 8 Hrs Date Time Temp Pulse Resp B/P Pulse Ox O2 Delivery O2 Flow Rate FiO2 08/21/16 07:30 97 Nasal Cannula 2.0 08/21/16 07:23 36.6 99 18 117/73 95 Room Air 08/21/16 07:03 71 16 95 Room Air Physical Exam: GEN: WNWD, in no acute distress, alert and appropriate, no conversational dyspnea HEENT: NC/AT, pupils are equal, normal sclerae CARDIO: reg rate, S1/2 heard without m/g/r LUNGS: CTA bilaterally, no crackles, rales or wheezes, good diaphragmatic excursion ABD: soft, non-tender, non-distended, no rebound or guarding, +BS EXTREMITY: RP and DP palpable 2+ bilat, no LE swelling or edema, extremities are warm and well-perfused NEURO: CN 2-12 grossly intact, sensation intact throughout MUSC: 5/5 strength throughout, no focal deficits SKIN: warm and dry Laboratory Results: 08/21/16 05:54 08/21/16 05:54 Test 08/20/16 03:40 08/20/16 03:45 08/20/16 03:46 08/20/16 04:21 Influenza Type A Antigen Neg for Influ A (NEG) Influenza Type B Antigen Neg for Influ B (NEG) Immature Granulocyte % (Auto) 0.4 % White Blood Count 23.45 K/uL (4.8-10.8) Red Blood Count 4.19 M/uL (4.2-5.4) Hemoglobin 11.7 g/dL (12.0-16.0) Hematocrit 35.0 % (37-47) Mean Corpuscular Volume 83.5 fL (80-100) Mean Corpuscular Hemoglobin 27.9 pg (25-34) Mean Corpuscular Hemoglobin Concent 33.4 g/dl (32-36) Platelet Count 226 K/uL (130-400) Mean Platelet Volume 10.3 fL (7.4-10.4) Neutrophils (%) (Auto) 89.1 % Lymphocytes (%) (Auto) 3.5 % Monocytes (%) (Auto) 6.9 % Eosinophils (%) (Auto) 0.0 % Basophils (%) (Auto) 0.1 % Neutrophils # (Auto) 20.91 K/uL (1.4-6.5) Lymphocytes # (Auto) 0.82 K/uL (1.2-3.4) Monocytes # (Auto) 1.61 K/uL (0.11-0.59) Eosinophils # (Auto) 0.00 K/uL (0-0.5) Basophils # (Auto) 0.02 K/uL (0-0.2) Immature Granulocyte # (Auto) 0.09 K/uL (0.00-0.02) Red Blood Cell Morphology Unremarkable Prothrombin Time 11.2 SECONDS (9.0-12.0) Prothromb Time International Ratio 1.0 (0.9-1.1) Activated Partial Thromboplast Time 28.3 SECONDS (21.0-31.0) Partial Thromboplastin Ratio 1.1 Total Bilirubin 0.8 mg/dl (0.2-1) Direct Bilirubin 0.2 mg/dl (0-0.2) Aspartate Amino Transf (AST/SGOT) 13 U/L (15-37) Alanine Aminotransferase (ALT/SGPT) 20 U/L (12-78) Alkaline Phosphatase 92 U/L (45-117) Total Protein 7.0 gm/dl (6.4-8.2) Albumin 3.3 gm/dl (3.4-5.0) Lipase 70 U/L (73-393) Hepatitis C Antibody Screen NEG (NEG) Bedside Lactic Acid Venous 0.80 mmol/L (0.90-1.70) Test 08/20/16 06:00 08/20/16 09:35 08/20/16 14:10 08/21/16 05:54 Urine Color YELLOW Urine Appearance CLEAR (CLEAR) Urine pH 6.0 (4.5-7.5) Urine Specific [place] 1.018 (1.000-1.030) Urine Protein NEG (NEG) Urine Glucose (UA) NEG (NEG) Urine Ketones TRACE (NEG) Urine Occult Blood NEG (NEG) Urine Nitrite NEG (NEG) Urine Bilirubin NEG (NEG) Urine Urobilinogen NEG (NEG) Urine Leukocyte Esterase SMALL (NEG) Urine WBC (Auto) 1-5 /hpf (0-5) Urine RBC (Auto) 0-4 /hpf (0-4) Urine Hyaline Casts (Auto) 1-5 /lpf (0-5) Urine Epithelial Cells (Auto) 20-30 /lpf (0-5) Urine Bacteria (Auto) NEG (NEG) Influenza Type A (RT-PCR) Neg for Influ A (NEG) Influenza Type B (RT-PCR) Neg for Influ B (NEG) Estimated Average Glucose 140 mg/dl Hemoglobin A1c 6.5 % (4.5-5.6) Red Blood Count 4.35 M/uL (4.2-5.4) Mean Corpuscular Volume 85.5 fL (80-100) Mean Corpuscular Hemoglobin 28.0 pg (25-34) Mean Corpuscular Hemoglobin Concent 32.8 g/dl (32-36) RDW Standard Deviation 48.7 fL (36.4-46.3) RDW Coefficient of Variation 15.4 % (11.5-14.5) Mean Platelet Volume 11.4 fL (7.4-10.4) Anion Gap 8.0 mmol/L (3-11) Est Creatinine Clear Calc Drug Dose 60.3 ml/min Estimated GFR () 78.8 Estimated GFR (Non- 68.0 BUN/Creatinine Ratio 19.8 (10-20) Calcium Level 9.1 mg/dl (8.5-10.1) Magnesium Level 2.1 mg/dl (1.8-2.4) Test 08/21/16 16:24 Bedside Glucose 104 mg/dl (70-90) Date/Time Source Procedure Growth Status 08/20/16 03:50 Blood Blood Culture - Preliminary NO GROWTH TO DATE. Resulted 08/20/16 06:00 Urine , Clean Catch Urine Culture - Preliminary NO GROWTH - LESS THAN 1,000 COLONIES/... Resulted Last 24 Hours Test 08/20/16 11:16 08/20/16 14:10 08/20/16 17:14 08/20/16 20:31 Bedside Glucose 142 mg/dl 121 mg/dl 116 mg/dl Potassium Level 3.2 mmol/L Estimated Average Glucose 140 mg/dl Hemoglobin A1c 6.5 % Test 08/21/16 05:54 08/21/16 07:44 White Blood Count 18.11 K/uL Red Blood Count 4.35 M/uL Hemoglobin 12.2 g/dL Hematocrit 37.2 % Mean Corpuscular Volume 85.5 fL Mean Corpuscular Hemoglobin 28.0 pg Mean Corpuscular Hemoglobin Concent 32.8 g/dl RDW Standard Deviation 48.7 fL RDW Coefficient of Variation 15.4 % Platelet Count 222 K/uL Mean Platelet Volume 11.4 fL Sodium Level 139 mmol/L Potassium Level 3.5 mmol/L Chloride Level 103 mmol/L Carbon Dioxide Level 28 mmol/L Anion Gap 8.0 mmol/L Blood Urea Nitrogen 17 mg/dl Creatinine 0.86 mg/dl Est Creatinine Clear Calc Drug Dose 60.3 ml/min Estimated GFR () 78.8 Estimated GFR (Non- 68.0 BUN/Creatinine Ratio 19.8 Random Glucose 124 mg/dl Calcium Level 9.1 mg/dl Magnesium Level 2.1 mg/dl Bedside Glucose 132 mg/dl Assessment & Plan 71 yoF who presented with sepsis and fever/confusion admitted and found to have pneumonia 1. CAP--pt is doing much better this morning. Off oxygen. Ambulating without much difficulty. Tolerating PO. Stopped Zosyn. Flu PCR is negative. Switched IV Levaquin to PO and ensure continued improvement. Likely dc in am. 2. Metabolic encephalopathy-reoslved 3. Hypokalemia-replaced and WNL today 4. HTN-controlled, hold HCTZ 5. Asthma-stable, no wheezing on exam, cont Symbicort and nebs PRN 6. DMII-glucose at goal range; cont ISS, fingersticks qAC/HS DVT proph: Lovenox Full Code DISPOSITION: to home in am. Holly Wheatley DO Hospitalist Current Inpatient Medications: Current Inpatient Medications Medications (Trade) Dose Ordered Sig/Tiara Route Start Time Stop Time Status Last Admin Dose Admin Enoxaparin Sodium (Lovenox Inj) 40 mg Q24H SQ 08/20/16 09:00 09/19/16 08:59 08/21/16 08:55 40 MG Acetaminophen 650 mg 650 mg Q4H PRN PO 08/20/16 05:45 09/19/16 05:44 08/21/16 05:44 650 MG Lactated Ringer's (Lr 1000ml) 1,000 ml @ 100 mls/hr Q10H IV 08/20/16 06:45 09/19/16 06:44 08/21/16 03:34 100 MLS/HR Aspirin (Ecotrin Tab) 81 mg DAILY PO 08/20/16 09:00 09/19/16 08:59 08/21/16 07:54 81 MG Atorvastatin Calcium (Lipitor Tab) 40 mg DAILY PO 08/20/16 09:00 09/19/16 08:59 08/21/16 07:55 40 MG Budesonide/ Formoterol Fumarate (Symbicort 80/ 4.5 Inh) 2 puffs BID INH 08/20/16 09:00 09/19/16 08:59 08/21/16 07:54 2 PUFFS Cyanocobalamin (Vitamin B-12 Tab) 1,000 mcg DAILY PO 08/20/16 09:00 09/19/16 08:59 08/21/16 07:55 1,000 MCG Levothyroxine Sodium (Synthroid Tab) 50 mcg DAILYBB PO 08/20/16 08:00 09/19/16 07:59 08/21/16 05:45 50 MCG Montelukast Sodium (Singulair Tab) 10 mg QPM PO 08/20/16 21:00 09/19/16 20:59 08/20/16 20:52 10 MG Travoprost (Travatan Z) 1 drops HS OPB 08/20/16 21:00 09/19/16 20:59 08/20/16 20:54 1 DROPS Multivitamins/ Minerals (Multivitamin W/ Minerals Tab) 1 tab BID PO 08/20/16 09:00 09/19/16 08:59 08/21/16 07:54 1 TAB Ipratropium [place] (Atrovent 0.02% 0.5MG/2.5ML Neb) 0.5 mg QIDR INH 08/20/16 08:00 09/19/16 07:59 08/21/16 07:03 0.5 MG Levalbuterol (Xopenex 1.25MG/ 0.5ML Neb) 1.25 mg QIDR INH 08/20/16 08:00 09/19/16 07:59 08/21/16 07:03 1.25 MG Levalbuterol 0.63 mg 0.63 mg Q2H PRN INH 08/20/16 07:15 09/19/16 07:14 Levofloxacin/Prmx (Levaquin / D5W/ Premixed D5W) 150 ml @ 100 mls/hr DAILY@0600 IV 08/21/16 06:00 08/27/16 05:59 08/21/16 05:44 100 MLS/HR Levofloxacin (Consult) 1 ea UD PRN N/A 08/20/16 08:30 09/19/16 08:29 Guaifenesin (Robitussin Sugar Free Syrup) 100 mg Q6H PRN PO 08/20/16 10:30 09/19/16 10:29 Insulin Aspart (novoLOG ASPART) SLIDING SCALE G... ACHS SC 08/20/16 11:00 09/19/16 10:59 08/21/16 08:03 3 UNITS
[2016-08-21] MEDS: TRAVOPROST Z 0.004% OPH SOLN 2.5 ML BTL OPB SCH (21:02)
[2016-08-21] MEDS: MONTELUKAST SOD 10 MG TAB PO SCH (21:03)
[2016-08-22] MEDS: LEVOTHYROXINE 50 MCG TAB PO SCH (06:17)
[2016-08-22 07:51] LABS: HEMATOCRIT 36.4 % (37-47); MEAN CELL VOLUME 85.6 fL (80-100); MEAN CORPUSCULAR HEMOGLOBIN 27.5 pg (25-34); MEAN CORPUSCULAR HGB CONC 32.1 g/dl (32-36); PLATELET COUNT 232 K/uL (130-400); RED BLOOD COUNT 4.25 M/uL (4.2-5.4); WHITE BLOOD COUNT 13.76 K/uL (4.8-10.8)
[2016-08-22 07:59] VITALS: PULSE 85; O2SAT 92
[2016-08-22] MEDS: LEVALBUTEROL 1.25MG/0.5ML NEB INH SCH ×2 (07:59→11:31)
[2016-08-22] MEDS: IPRATROPIUM BROMIDE NEB SOLN 0.02% 2.5 ML VIAL INH SCH ×2 (07:59→11:31)
[2016-08-22 08:00] VITALS: BP 134/82; PULSE 96; TEMP 37; O2SAT 90
[2016-08-22 08:24] LABS: BASO % 0.2 %; BASO ABS # 0.03 K/uL (0-0.2); COMPLETE YES; EOS % 1.6 %; IG% 0.1 %; LYMPH % 11.4 %; LYMPH ABS # 1.57 K/uL (1.2-3.4); MONO % 8.9 %; NEUT % 77.8 %
[2016-08-22] MEDS: ASPIRIN 81 MG ECTAB PO SCH (08:29)
[2016-08-22] MEDS: ATORVASTATIN 40 MG TAB PO SCH (08:29)
[2016-08-22] MEDS: CYANOCOBALAMIN 500 MCG TAB (VIT B-12) PO SCH (08:30)
[2016-08-22] MEDS: BUDESONIDE/FORMOTEROL FUMARATE 80/4.5 60 PUFFS/INHALER INH SCH (08:30)
[2016-08-22] MEDS: CEROVITE ADV FORMULA TAB PO SCH (08:30)
[2016-08-22] MEDS: ENOXAPARIN 40 MG/0.4 ML SYR SQ SCH (08:31)
[2016-08-22] MEDS: INSULIN ASPART 100 UNITS/ML 3 ML PEN SC SCH (08:33)
[2016-08-22 08:37] LABS: BUN/CREATININE RATIO 18.1 (10-20); CALCIUM 9.2 mg/dl (8.5-10.1); CREATININE 0.84 mg/dl (0.60-1.20); MAGNESIUM 2.3 mg/dl (1.8-2.4); POTASSIUM 3.6 mmol/L (3.5-5.1)
[2016-08-22 08:40] VITALS: O2SAT 90
[2016-08-22] MEDS ORDERED: LEVOFLOXACIN 750 MG TAB PO SCH (09:00)
[2016-08-22] MEDS ORDERED: LVQ750 PO (10:28)
--- NOTE | 2016-08-22 10:31 | Discharge Instructions ---
Discharge Instructions Date of Service Aug 22, 2016. Admission Reason for Admission: FEVER Discharge Discharge Diagnosis / Problem: CAP Discharge Goals Goal(s): Prevent Disease Progression Activity Recommendations Activity Limitations: resume your previous activity Instructions / Follow-Up Instructions / Follow-Up Please take all medications as instructed, including finishing complete antibiotic course given I recommend a repeat chest xray as an outpatient in 4-6 weeks to ensure complete resolution of pneumonia. You have a follow-up appointment scheduled with Dr. Brea Mena for 08/28 @ 3 :00. Please bring all paperwork from this hospitalization with you. It was a pleasure taking care of you! Call if you have any questions or problems. You can reach a [facility] hospitalist on duty at [facility] 24 hours a day by calling [phone]. Take care of yourself. Holly Wheatley DO [facility] Hospitalist Current Hospital Diet Patient's current hospital diet: AHA Diet (Heart Healthy), Diabetes Type 2 Diet Discharge Diet Recommended Diet: AHA Diet (Heart Healthy), Diabetes Type 2 Diet Pending Studies Studies pending at discharge: yes List of pending studies: Finalized blood culture results which were negative at discharge on 08/22 Laboratory Results Hemoglobin A1c Test 08/20/16 14:10 Range/Units Estimated Average Glucose 140 mg/dl Hemoglobin A1c 6.5 H 4.5-5.6 % Medical Emergencies . Who to Call and When: Medical Emergencies: If at any time you feel your situation is an emergency, please call 911 immediately. . Non-Emergent Contact Non-Emergency issues call your: Primary Care Provider . . "Provider Documentation" section prepared by Holly Wheatley. VTE Core Measure Inpt VTE Proph given/why not?: Enoxaparin (Lovenox)SQ
[2016-08-22 10:53] VITALS: BP 134/82; PULSE 96; TEMP 37; O2SAT 90
[2016-08-22 11:31] VITALS: PULSE 85; O2SAT 92
--- NOTE | 2016-08-28 09:56 | Discharge Summary ---
Discharge Summary Date of Service Aug 28, 2016. Discharge Summary Admission Date: Aug 20, 2016 at 05:36 Discharge Date: Aug 22, 2016 Discharge Disposition: Home Principal Diagnosis: 1. CAP 2. Metabolic encephalopathy-resolved 3. Hypokalemia-resolved 4. HTN 5. Asthma 6. DMII Procedures: None. Vaccinations: None. Consultations: None. Pending Studies/Follow-Up: see instructions below Medication Reconciliation New Medications: Levofloxacin (Levofloxacin) 750 Mg Tab 750 MG PO DAILY@1100 for 4 Days, #4 TAB Continued Medications: Albuterol Hfa (Ventolin Hfa) 200 Puffs/67989 Mcg Aers 2 PUFFS INH Q6H PRN for SOB/Wheezing, #1 INHALER Aspirin (Aspirin Ec) 81 Mg Tab 81 MG PO DAILY Atorvastatin (Lipitor) 40 Mg Tab 40 MG PO DAILY Budesonide/Formoterol Fumarate (Symbicort 80/4.5 Inhaler) Aero 2 PUFFS INH BID, INHALER Cyanocobalamin (Vitamin B-12) 1,000 Mcg Tab 1000 MCG PO DAILY, TAB Hydrochlorothiazide (Hctz) 25 Mg Tab 25 MG PO DAILY, TAB Ibuprofen (Ibuprofen) 200 Mg Cap 400 MG PO QAM Levothyroxine Sodium (Levothyroxine Sodium) 50 Mcg Tab 50 MCG PO DAILY, TAB Metformin Hcl (Glucophage) 1,000 Mg Tab 1000 MG PO BID, TAB Montelukast Sodium (Singulair) 10 Mg Tab 10 MG PO QPM, TAB Multiple Vitamins W/ Minerals (Preservision Areds) 1 Cap Cap 1 CAP PO BID Sitagliptin Phosphate (Januvia) 100 Mg Tab 100 MG PO DAILY, TAB Travoprost (Travatan Z) 0.004 % Shaan 1 DROPS OPB HS, #2.5 ML Admission Information HPI (per Admitting provider): 71 YO female followed by Dr. Brea Mena for Family Medicine. History of hypertension, asthma, DM, and other problems noted below. Developed pharyngitis about 24 hours prior to admission. Subsequently developed fever, chills, sweats, malaise, and a minimally productive cough. Tonight, patient's noted that she was confused. Also had an episode of urinary incontinence which is unusual for her. No associated dysuria or hematuria. Visited daughter about a week ago who was recovering from a bout of influenza. . Physical Exam (per Admitting): General Appearance: WD/WN, no apparent distress Head: normocephalic, atraumatic Eyes: normal inspection, PERRL, EOMI, sclerae normal ENT: normal ENT inspection, hearing grossly normal, pharynx normal, + pertinent finding (dentition fair) Neck: supple, no adenopathy, thyroid normal, no JVD, trachea midline Respiratory/Chest: no accessory muscle use, + crackles (right base), + wheezing (diffuse mild wheezing) Cardiovascular: regular rate, rhythm, no edema, no gallop, no JVD, no murmur , normal peripheral pulses, + tachycardia Abdomen/GI: normal bowel sounds, non tender, soft, no organomegaly, no pulsatile mass Extremities/Musculoskelatal: normal inspection, no calf tenderness, normal capillary refill, no pedal edema Neurologic/Psych: ham trimmer II-XII nml as tested (PERRL, EOMI, no facial palsy, no dysarthria), no motor/sensory deficits (upper and lower extremity strength grossly intact), alert, oriented x 3 Skin: normal color, warm/dry, no rash Lymphatic: no adenopathy Hospital Course 71 yoF who presented with sepsis and fever/confusion admitted and found to have pneumonia 1. CAP--pt is doing much better this morning. Off oxygen. Ambulating without much difficulty. Tolerating PO. Stopped Zosyn. Flu PCR is negative. Switched IV Levaquin to PO and ensure continued improvement. Likely dc in am. 2. Metabolic encephalopathy-reoslved 3. Hypokalemia-replaced and WNL today 4. HTN-controlled, hold HCTZ 5. Asthma-stable, no wheezing on exam, cont Symbicort and nebs PRN 6. DMII-glucose at goal range; cont ISS, fingersticks qAC/HS On day of discharge Ms. Cook was afebrile, hemodynamically stable and oxygenating well on room air. She was ambulating without difficulty and tolerating PO. Initial symptoms on arrival had resolved. Physical exam was unremarkable including clear lungs to auscultation. She was sent home in stable condition with close PCP follow-up within one week. Total time spent on discharge = 60 minutes This includes examination of the patient, discharge planning, medication reconciliation, and communication with other providers. Discharge Instructions Discharge Instructions Date of Service Aug 22, 2016. Admission Reason for Admission: FEVER Discharge Discharge Diagnosis / Problem: CAP Discharge Goals Goal(s): Prevent Disease Progression Activity Recommendations Activity Limitations: resume your previous activity Instructions / Follow-Up Instructions / Follow-Up Please take all medications as instructed, including finishing complete antibiotic course given I recommend a repeat chest xray as an outpatient in 4-6 weeks to ensure complete resolution of pneumonia. You have a follow-up appointment scheduled with Dr. Brea Mena for 08/28 @ 3 :00. Please bring all paperwork from this hospitalization with you. It was a pleasure taking care of you! Call if you have any questions or problems. You can reach a [facility] hospitalist on duty at [facility] 24 hours a day by calling [phone]. Take care of yourself. Holly Wheatley DO [facility] Hospitalist Current Hospital Diet Patient's current hospital diet: AHA Diet (Heart Healthy), Diabetes Type 2 Diet Discharge Diet Recommended Diet: AHA Diet (Heart Healthy), Diabetes Type 2 Diet Pending Studies Studies pending at discharge: yes List of pending studies: Finalized blood culture results which were negative at discharge on 08/22 Laboratory Results Hemoglobin A1c Test 08/20/16 14:10 Range/Units Estimated Average Glucose 140 mg/dl Hemoglobin A1c 6.5 H 4.5-5.6 % Medical Emergencies . Who to Call and When: Medical Emergencies: If at any time you feel your situation is an emergency, please call 911 immediately. . Non-Emergent Contact Non-Emergency issues call your: Primary Care Provider . . "Provider Documentation" section prepared by Holly Wheatley. VTE Core Measure Inpt VTE Proph given/why not?: Enoxaparin (Lovenox)SQ <Electronically signed by Holly Wheatley DO> Signed: 08/22/16 1031 Signed: The status of this report is Signed * If report status is Draft, the document has not been finalized by the responsible provider. Additional Copies To Brea Mena D.O.
== END 2016-08-22 11:50 | disposition home or self-care (01) | DRG 871 ==
LOC: ENRESERVDT → ENRESERVTM → C.EDB 03:12 → C.MED 05:36 → C.MS2W 08-21 22:05
PROVIDERS: ADMIT Hospitalist; ATTEND Hospitalist
DX: A41.9 Sepsis, unspecified organism (principal); G93.41 Metabolic encephalopathy; J18.9 Pneumonia, unspecified organism; E11.9 Type 2 diabetes mellitus without complications; I10 Essential (primary) hypertension; J45.909 Unspecified asthma, uncomplicated; Z86.73 Personal history of transient ischemic attack (TIA), and cerebral infarction without residual deficits; Z85.3 Personal history of malignant neoplasm of breast; Z80.1 Family history of malignant neoplasm of trachea, bronchus and lung; Z80.3 Family history of malignant neoplasm of breast; Z83.3 Family history of diabetes mellitus; Z82.49 Family history of ischemic heart disease and other diseases of the circulatory system; E87.6 Hypokalemia; Z79.4 Long term (current) use of insulin